=== PATIENT | female | born 1965 | race Caucasian/White ===

== ENCOUNTER 2021-12-15 13:49 | Outpatient (RCR) | payer BC, MEDICARE | END 2022-01-11 | disposition home or self-care (01) | LOC: MKS.ESL.OT | DX: G82.20 Paraplegia, unspecified (principal) ==

== ENCOUNTER 2023-06-11 11:58 | Day surgery (SDC) | payer BC, MEDICARE ==
[~2023-06-11] VITALS: Wt 45.5 kg
[2023-06-11 13:46] VITALS: BP 116/70; PULSE 86; TEMP 97.9
[2023-06-11] MEDS ORDERED: ZANAFLEX 4MG TAB4 MG PO (13:50)
[2023-06-11] MEDS ORDERED: METHADONE H10 MG/TAB PO (13:50)
[2023-06-11] MEDS ORDERED: NAPROSYN500 MG PO (13:51)
[2023-06-11] MEDS ORDERED: LYRICA 100MG C100 M1 PO (13:51)
[2023-06-11] MEDS ORDERED: FENTANYL 100MCG TD (13:52)
[2023-06-11] MEDS ORDERED: HCTZ12.5TAB PO (13:52)
[2023-06-11] MEDS ORDERED: LEVAQUIN 750MG750 M1 PO (13:52)
[2023-06-11 17:33] VITALS: BP 93/61; PULSE 67; TEMP 97
--- NOTE | 2023-06-11 17:33 | NUR ---
PATIENT RETURNED TO ROOM 4 VIA CART, DROWSY AND AROUSES TO NAME. DENIES PAIN, NAUSEA AND SHORTNESS OF BREATH. BREATHING REGULAR AND UNLABORED ON ROOM AIR. SKIN WARM AND DRY. TRACE EDEMA TO BILATERAL LOWER EXTREMITIES. BILATERAL PEDAL PULSES 2+. INTACT DRESSING TO LEFT LEG (PRESENT ON ADMISSION). HANDOFF COMPLETED IN ROOM BY RJ CASTELLANOS AND GLENNY JONES. PER REPORT PATIENT IS PARAPLEGIC AND HAS A PERSONAL WHEELCHAIR IN THE ROOM FOR TRANSFERS. VISIBLE LEFT HIP MEDIPORE TAPE DRESSING IS CLEAN, DRY AND INTACT. SEE CHART FOR VITAL SIGNS. 1740: PATIENT IS ALERT AND ORIENTED X3. DENIES PAIN, NAUSEA AND SHORTNESS OF BREATH. PATIENT HAD APPLE JUICE AND SALTINES. BOTH FOOD AND DRINK WERE TOLERATED WELL. PATIENT REPORTS SENSATION TO BILATERAL LOWER EXTREMITIES. PATIENT IS SMILING AND STATES "WHEN WILL I GET TO GO HOME? IM READY". CALL LIGHT IN REACH. AND SON (KAYLEIGH) PRESENT IN ROOM.
[2023-06-11] MEDS ORDERED: NORCO 325 MG-51 TAB PO ×2 (17:38)
[2023-06-11 17:45] VITALS: BP 116/68; PULSE 64
[2023-06-11 18:02] VITALS: BP 119/83; PULSE 70
[2023-06-11 18:15] VITALS: BP 140/89; PULSE 71
[2023-06-11 18:30] VITALS: BP 105/71; PULSE 88
--- NOTE | 2023-06-11 18:58 | NUR ---
PER COMMUNICATION WITH RJ CASTELLANOS WILL NOT SEND THE PATIENT HOME WITH MAINE DUE TO THE PATIENT BEING ON FENTANYL AND METHADONE AT HOME. THIS WAS COMMUNICATED TO THE PATIENT AND FAMILY. PATIENT REPORTS 3/10 PAIN, DESCRIBED TOLERABLE, TO THE LEFT HIP AND DENIES ADDITIONAL PAIN INTERVENTIONS. THE PATIENT EXPRESSED CONCERNS OVER PAIN MANAGEMENT FOR WHEN SHE GOT HOME. DISCUSSED OVER THE COUNTER AND NON PHARMACOLOGICAL OPTIONS. DISCUSSED THE LOCAL MEDICATION USED DURING THE DEBRIDEMENT TODAY. OFFERED FOUR TIMES TO CALL AND DISCUSS PAIN MANAGEMENT TOGETHER. THE PATIENT DECLINED TO CALL AND SAID "I WILL JUST MANAGE". PROVIDED [facility] OFFICE NUMBER FOR PATIENT AND INSTRUCTED TO CALL IF PAIN BECAME INTOLERABLE/UNMANAGEABLE. ASKED PATIENT IF THERE WERE ANY ADDITIONAL NEEDS THAT SHOULD TO BE ADDRESSED, PATIENT DECLINED AND SAID "LETS JUST GET ME HOME". 1840: DISCHARGE TEACHING COMPLETED WITH PRINTED EDUCATION AND INSTRUCTIONS SENT HOME WITH PATIENT. INSTRUCTED PATIENT TO FOLLOW UP WITH ESTABLISHED WOUND CARE. PROVIDED [facility] OFFICE NUMBER. PATIENT VERBALIZED UNDERSTANDING OF INSTRUCTIONS. 1845: PATIENT IS TOLERATING FOOD AND DRINK. PAIN IS 3/10 AND DESCRIBED TOLERABLE FOR PATIENT. IV REMOVED. GAUZE AND COBAN PLACED OVER SITE. 1858: ASSISTED PATIENT INTO CHANGING INTO PERSONAL CLOTHING AND TRANSFERRING INTO PERSONAL WHEELCHAIR. PATIENT THANKED NURSE FOR CARE AND WAS DISCHARGED HOME WITH , [facility], TRANSPORT.
== END 2023-06-11 18:58 | disposition home or self-care (01) ==
LOC: SDCO 11:58
DX: L89.224 Pressure ulcer of left hip, stage 4 (principal); L08.9 Local infection of the skin and subcutaneous tissue, unspecified; F17.210 Nicotine dependence, cigarettes, uncomplicated
CPT/HCPCS: J0690; J2250; J2704; J7120